=== PATIENT | male | born 1970 | race African-American/Black ===

== ENCOUNTER 2016-12-21 07:35 | Emergency (ER) | payer MEDICAID ==
[~2016-12-21] VITALS: Ht 177.8 cm; Wt 90.0 kg
[~2016-12-21 07:35] MED LIST: AMLO10TA4 PO; ASPI-1035 PO; INSULIN; METF500T4 PO
[2016-12-21] MEDS ORDERED: SODIUM CHLORIDE 0.9% 1,000 ML IV ONE (07:48)
[2016-12-21] MEDS ORDERED: ONDANSETRON HCL 4MG/2ML VIAL IV STA (07:48)
[2016-12-21 08:21] LABS: HEMATOCRIT. 34.1 % (42.0-52.0); HEMOGLOBIN. 11.4 g/dL (14.0-18.0); MEAN CORPUSCULAR HEMOGLOBIN 27.5 pg (28.0-32.0); MEAN CORPUSCULAR HGB CONC 33.5 g/dL (31.0-37.0); MEAN CORPUSCULAR VOLUME 82.2 fL (80.0-94.0); MEAN PLATELET VOLUME 8.1 fl (7.4-10.4); PLATELET 189 x1000/uL (130-400); RED BLOOD CELL COUNT 4.15 mill/uL (4.7-6.1); RED CELL DISTRIBUTION WIDTH 13.2 % (11.6-14.6); WHITE BLOOD COUNT 11.7 x1000/uL (4.5-11.0)
[2016-12-21 08:24] LABS: DIFFERENTIAL COMMENT 1
[2016-12-21 08:36] LABS: ALANINE AMINOTRANSFERASE 29 IU/L (13-61); ALBUMIN 3.7 g/dL (3.4-5.0); ANION GAP 12; CARBON DIOXIDE 29 mEq/L (21-32); CHLORIDE 106 mEq/L (98-107); INDEX HEMOLYSI 1 (1-3); INDEX ICTERIC 1 (1-4); INDEX LIPEMIC 1 (1-3); LIPASE 207 IU/L (73-393); UREA NITROGEN BLOOD 15 mg/dL (7-21); eGFR > 60 mL/min (>60)
[2016-12-21 08:59] LABS: PLATELET ESTIMATE NORMAL
[2016-12-21] MEDS ORDERED: ONDANSETRON HCL 4MG/2ML VIAL IV ONE (09:15)
[2016-12-21] MEDS ORDERED: MORPHINE SULFATE 4 MG/ML CPJ (NOT FOR IM USE) IV ONE (09:15)
[2016-12-21 09:35] LABS: CLARITY URINE CLEAR (CLEAR); COLOR URINE YELLOW (YELLOW); GLUCOSE URINE 2+ (NEGATIVE); KETONES URINE NEGATIVE (NEGATIVE); LEUKOCYTE ESTERASE URINE NEGATIVE (NEGATIVE); NITRITE URINE NEGATIVE (NEGATIVE); OCCULT BLOOD URINE 1+ (NEGATIVE); PROTEIN URINE 3+ (NEGATIVE); SPECIFIC GRAVITY URINE 1.019 (1.005-1.030); UROBILINOGEN URINE 0.2 E.U./dL (0.2-1.0)
[2016-12-21 09:45] LABS: *AMPHETAMINES SCREEN URINE NEGATIVE (NEGATIVE); *BARBITURATES SCREEN URINE NEGATIVE (NEGATIVE); *BENZODIAZEPINES SCREEN URINE NEGATIVE (NEGATIVE); *COCAINE SCREEN URINE NEGATIVE (NEGATIVE); CANNABINOID URINE SCREEN PRESUMTIVE POSITIVE (NEGATIVE); ECSTASY MDMA SCREEN URINE NEGATIVE (NEGATIVE); METHADONE URINE SCREEN NEGATIVE (NEGATIVE); OPIATES URINE SCREEN NEGATIVE (NEGATIVE); PHENCYCLIDINE URINE SCREEN NEGATIVE (NEGATIVE)
[2016-12-21 10:22] LABS: MUCUS URINE TRACE /lpf (NONE/TRACE); SQUAMOUS EPITHELIAL CELL URINE FEW /lpf (RARE/1+)
[2016-12-21 10:23] LABS: BACTERIA URINE TRACE; RBC URINE 15-25 /hpf (0-2); WBC URINE 0-2 /hpf (0-2)
[2016-12-21 10:45] VITALS: BP 183/89
[2016-12-21] MEDS ORDERED: HYDROCODONE/ACETAMINOPHEN 5/325MG TABLET PO ONE (10:45)
== END 2016-12-21 10:59 | disposition home or self-care (01) ==
LOC: ER 07:44
DX: R10.13 Epigastric pain (principal); R11.0 Nausea; I10 Essential (primary) hypertension; F12.10 Cannabis abuse, uncomplicated; E11.9 Type 2 diabetes mellitus without complications; Z79.4 Long term (current) use of insulin; Z79.82 Long term (current) use of aspirin
CPT/HCPCS: 36415; 80053; 80305; 81001; 83690; 85025; 96361; 96374; 96375; 96376; 99285; J2270; J2405; J7030; Z7610

== ENCOUNTER 2016-12-21 19:37 | Emergency (ER) | payer MEDICAID ==
[~2016-12-21] VITALS: Ht 170.2 cm; Wt 90.7 kg
[2016-12-21] MEDS ORDERED: SODIUM CHLORIDE 0.9% 1,000 ML IV ONE (19:51)
[2016-12-21] MEDS ORDERED: ONDANSETRON HCL 4MG/2ML VIAL IV STA (19:51)
[2016-12-21] MEDS ORDERED: KETOROLAC 30MG/ML VIAL IV STA (19:51)
[2016-12-21 20:09] LABS: HEMATOCRIT. 34.7 % (42.0-52.0); HEMOGLOBIN. 11.5 g/dL (14.0-18.0); MEAN CORPUSCULAR HEMOGLOBIN 27.2 pg (28.0-32.0); MEAN CORPUSCULAR HGB CONC 33.3 g/dL (31.0-37.0); MEAN CORPUSCULAR VOLUME 81.6 fL (80.0-94.0); PLATELET 184 x1000/uL (130-400); RED BLOOD CELL COUNT 4.25 mill/uL (4.7-6.1); RED CELL DISTRIBUTION WIDTH 13.1 % (11.6-14.6); WHITE BLOOD COUNT 17.4 x1000/uL (4.5-11.0)
[2016-12-21 20:10] LABS: DIFFERENTIAL COMMENT 1
[2016-12-21 20:12] LABS: CHLORIDE 103 mEq/L (98-107); INDEX HEMOLYSI 1 (1-3); INDEX ICTERIC 1 (1-4); INDEX LIPEMIC 1 (1-3)
[2016-12-21 20:14] LABS: PROTHROMBIN TIME 10.4 sec
[2016-12-21 20:20] LABS: ALANINE AMINOTRANSFERASE 28 IU/L (13-61); ALBUMIN 3.8 g/dL (3.4-5.0); ANION GAP 10; CALCIUM 8.8 mg/dL (8.5-10.1); CARBON DIOXIDE 30 mEq/L (21-32); ETHANOL BLOOD < 10 mg/dL; LIPASE 115 IU/L (73-393); UREA NITROGEN BLOOD 10 mg/dL (7-21); eGFR > 60 mL/min (>60)
[2016-12-21 20:22] LABS: PLATELET ESTIMATE NORMAL
[2016-12-21 23:00] VITALS: BP 136/97
== END 2016-12-21 23:00 | disposition home or self-care (01) ==
LOC: ER 19:37
DX: E11.65 Type 2 diabetes mellitus with hyperglycemia (principal); R10.33 Periumbilical pain; I10 Essential (primary) hypertension; F12.10 Cannabis abuse, uncomplicated; E78.00 Pure hypercholesterolemia, unspecified; Z79.82 Long term (current) use of aspirin; Z79.4 Long term (current) use of insulin
CPT/HCPCS: 36415; 74176; 80053; 83690; 85025; 85610; 96361; 96374; 96375; 99285; G0482; J1885; J2405; J7030; Z7610

== ENCOUNTER 2017-08-07 10:41 | Emergency (ER) | payer MEDICAID ==
[~2017-08-07] VITALS: Ht 170.2 cm; Wt 80.0 kg
[~2017-08-07 10:41] MED LIST changes: -ASPI-1035 PO; +ASPI-1159 PO
[2017-08-07] MEDS ORDERED: ACETAMINOPHEN WITH CODEINE 300/30MG TABLET PO ONE (13:15)
[2017-08-07] MEDS ORDERED: CEPHALEXIN 500MG CAPSULE PO ONE (13:15)
[2017-08-07] MEDS ORDERED: SULFAMETHOXAZOLE/TRIMETHOPRIM 800/160MG TABLET PO ONE (13:15)
[2017-08-07 13:45] VITALS: BP 165/84
== END 2017-08-07 13:48 | disposition home or self-care (01) ==
LOC: ER 11:20
DX: I80.8 Phlebitis and thrombophlebitis of other sites (principal); I10 Essential (primary) hypertension; E78.00 Pure hypercholesterolemia, unspecified; E11.9 Type 2 diabetes mellitus without complications; F12.10 Cannabis abuse, uncomplicated; Z79.82 Long term (current) use of aspirin; Z79.4 Long term (current) use of insulin
CPT/HCPCS: 82962; 99284

== ENCOUNTER 2018-08-03 11:00 | Inpatient (IN) | payer MEDICAID ==
[~2018-08-03] VITALS: Ht 170.2 cm; Wt 91.2 kg
[~2018-08-03 11:00] MED LIST changes: -INSULIN; +LIP40 PO; +LOSA25TA3 PO; +METF-414 PO; -METF500T4 PO; +METO10TA3 PO
[2018-08-03] MEDS ORDERED: SODIUM CHLORIDE 0.9% 1,000 ML IV ONE (11:28)
[2018-08-03] MEDS ORDERED: MORPHINE SULFATE 4 MG/ML CPJ (NOT FOR IM USE) IV STA (11:28)
[2018-08-03] MEDS ORDERED: ONDANSETRON HCL 4MG/2ML INJ IV STA (11:28)
[2018-08-03] MEDS ORDERED: FAMOTIDINE 20MG/2ML VIAL IV STA (11:28)
[2018-08-03 11:50] LABS: CHLORIDE 104 mEq/L (98-107)
[2018-08-03 11:53] LABS: PROTHROMBIN TIME 9.7 sec (9.1-11.1)
[2018-08-03 12:00] LABS: HEMATOCRIT. 32.9 % (42.0-52.0); MEAN CORPUSCULAR HEMOGLOBIN 27.7 pg (28.0-32.0); MEAN CORPUSCULAR VOLUME 82.9 fL (80.0-94.0); MEAN PLATELET VOLUME 8.4 fl (7.4-10.4); PLATELET 181 x1000/uL (130-400); RED BLOOD CELL COUNT 3.97 mill/uL (4.7-6.1); RED CELL DISTRIBUTION WIDTH 13.1 % (11.6-14.6)
[2018-08-03 12:21] LABS: PLATELET ESTIMATE NORMAL
[2018-08-03 14:16] LABS: CLARITY URINE CLEAR (CLEAR); COLOR URINE YELLOW (YELLOW); KETONES URINE NEGATIVE (NEGATIVE); LEUKOCYTE ESTERASE URINE NEGATIVE (NEGATIVE); NITRITE URINE NEGATIVE (NEGATIVE); OCCULT BLOOD URINE 2+ (NEGATIVE); PROTEIN URINE 4+ (NEGATIVE); SPECIFIC GRAVITY URINE 1.024 (1.005-1.030); UROBILINOGEN URINE 0.2 E.U./dL (0.2-1.0)
[2018-08-03] MEDS ORDERED: DIPHENHYDRAMINE 50MG/ML VIAL IV PRN (16:45)
[2018-08-03] MEDS ORDERED: DEXTROSE 50% WATER 50ML SYRINGE IV PRN (16:45)
[2018-08-03 17:00] VITALS: BP 211/107
[2018-08-03] MEDS: SODIUM CHLORIDE 0.9% 1,000 ML IV SCH (17:15)
[2018-08-03] MEDS: BLOOD SUGAR DIAGNOSTIC STRIP TEST SCH ×2 (17:40→20:17)
[2018-08-03] MEDS: ONDANSETRON HCL 4MG/2ML INJ IV PRN (17:48)
[2018-08-03] MEDS: HYDRALAZINE 20MG/ML VIAL IV PRN (17:49)
[2018-08-03] MEDS: MORPHINE SULFATE 4 MG/ML CPJ (NOT FOR IM USE) IV PRN (17:50)
[2018-08-03] MEDS: INSULIN LISPRO 100 UNITS/ML SUBCUT SCH ×2 (18:10→20:17)
[2018-08-03 20:00] VITALS: BP 139/77
[2018-08-03] MEDS: FAMOTIDINE 20MG/2ML VIAL IV SCH (20:02)
[2018-08-04] VITALS (9 sets, daily range): BP systolic 157–220; BP diastolic 65–110
[2018-08-04] MEDS: MORPHINE SULFATE 4 MG/ML CPJ (NOT FOR IM USE) IV PRN ×4 (00:10→22:14)
[2018-08-04] MEDS: HYDRALAZINE 20MG/ML VIAL IV PRN ×4 (00:10→18:36)
[2018-08-04] MEDS: ONDANSETRON HCL 4MG/2ML INJ IV PRN ×3 (00:10→12:56)
[2018-08-04] MEDS: SODIUM CHLORIDE 0.9% 1,000 ML IV SCH ×2 (03:15→12:57)
[2018-08-04] MEDS: BLOOD SUGAR DIAGNOSTIC STRIP TEST SCH ×4 (05:48→21:00)
[2018-08-04 07:37] LABS: BASOPHILS % 0.3 % (0.0-2.0); EOSINOPHILS % 0.2 % (0.0-5.0); HEMATOCRIT. 32.7 % (42.0-52.0); HEMOGLOBIN. 10.7 g/dL (14.0-18.0); LYMPHOCYTES % 10.5 % (20.0-50.0); MEAN CORPUSCULAR HEMOGLOBIN 27.5 pg (28.0-32.0); MEAN CORPUSCULAR VOLUME 83.9 fL (80.0-94.0); MEAN PLATELET VOLUME 8.6 fl (7.4-10.4); MONOCYTES % 9.9 % (2.0-8.0); NEUTROPHILS % 79.1 % (40.0-76.0); PLATELET 198 x1000/uL (130-400); RED CELL DISTRIBUTION WIDTH 13.2 % (11.6-14.6)
[2018-08-04] MEDS: INSULIN LISPRO 100 UNITS/ML SUBCUT SCH ×4 (08:10→21:00)
[2018-08-04] MEDS: FAMOTIDINE 20MG/2ML VIAL IV SCH (08:11)
[2018-08-04 08:19] LABS: CHLORIDE 105 mEq/L (98-107)
[2018-08-04 08:24] LABS: PHOSPHORUS 2.6 mg/dL (2.5-4.9)
[2018-08-04] MEDS ORDERED: POTASSIUM CHLORIDE INJ 40 MEQ in DEXT 5% WATER 250 ML IV SCH (12:00)
[2018-08-04] MEDS: PANTOPRAZOLE SODIUM 40 MG/VIAL IV SCH (17:37)
[2018-08-05] VITALS (7 sets, daily range): BP systolic 145–179; BP diastolic 82–95
[2018-08-05] MEDS: SODIUM CHLORIDE 0.9% 1,000 ML IV SCH ×2 (01:01→13:27)
[2018-08-05] MEDS: HYDRALAZINE 20MG/ML VIAL IV PRN ×2 (01:02→09:16)
[2018-08-05] MEDS: PANTOPRAZOLE SODIUM 40 MG/VIAL IV SCH ×2 (04:44→15:15)
[2018-08-05 06:02] LABS: CHLORIDE 109 mEq/L (98-107)
[2018-08-05 06:03] LABS: BASOPHILS % 0.8 % (0.0-2.0); EOSINOPHILS % 1.3 % (0.0-5.0); HEMATOCRIT. 31.1 % (42.0-52.0); HEMOGLOBIN. 10.4 g/dL (14.0-18.0); LYMPHOCYTES % 16.3 % (20.0-50.0); MEAN CORPUSCULAR HEMOGLOBIN 28.3 pg (28.0-32.0); MEAN CORPUSCULAR VOLUME 84.4 fL (80.0-94.0); MEAN PLATELET VOLUME 8.3 fl (7.4-10.4); MONOCYTES % 10.1 % (2.0-8.0); NEUTROPHILS % 71.5 % (40.0-76.0); PLATELET 184 x1000/uL (130-400); RED BLOOD CELL COUNT 3.69 mill/uL (4.7-6.1); RED CELL DISTRIBUTION WIDTH 13.4 % (11.6-14.6)
[2018-08-05 06:15] LABS: PHOSPHORUS 2.2 mg/dL (2.5-4.9)
[2018-08-05] MEDS: BLOOD SUGAR DIAGNOSTIC STRIP TEST SCH ×4 (07:40→21:00)
[2018-08-05] MEDS: INSULIN LISPRO 100 UNITS/ML SUBCUT SCH ×4 (08:10→21:00)
[2018-08-05] MEDS: MORPHINE SULFATE 4 MG/ML CPJ (NOT FOR IM USE) IV PRN (09:16)
[2018-08-05] MEDS ORDERED: POTASSIUM PHOS,M-BASIC-D-BASIC 20 MMOL in DEXT 5% WATER 243.3333 ML IV SCH (11:00)
[2018-08-05] MEDS ORDERED: KETOROLAC 30MG/ML VIAL IV PRN (23:45)
[2018-08-06] VITALS (7 sets, daily range): BP systolic 156–171; BP diastolic 55–90
[2018-08-06] MEDS: SODIUM CHLORIDE 0.9% 1,000 ML IV SCH (00:27)
[2018-08-06] MEDS: PANTOPRAZOLE SODIUM 40 MG/VIAL IV SCH ×2 (03:20→15:15)
[2018-08-06] MEDS: BLOOD SUGAR DIAGNOSTIC STRIP TEST SCH ×2 (06:37→11:57)
[2018-08-06] MEDS: INSULIN LISPRO 100 UNITS/ML SUBCUT SCH ×2 (08:10→12:43)
[2018-08-06] MEDS: HYDRALAZINE 20MG/ML VIAL IV PRN ×2 (08:47→12:42)
== END 2018-08-06 15:52 | disposition home or self-care (01) | DRG 282 ==
LOC: ER 11:22 → 7WST 12:54 → ENRESERV 14:49
PROVIDERS: ADMIT Internal Medicine; ATTEND Internal Medicine
DX: K85.90 Acute pancreatitis without necrosis or infection, unspecified (principal); K31.84 Gastroparesis; E11.43 Type 2 diabetes mellitus with diabetic autonomic (poly)neuropathy; E11.9 Type 2 diabetes mellitus without complications; F12.90 Cannabis use, unspecified, uncomplicated; E78.00 Pure hypercholesterolemia, unspecified; I10 Essential (primary) hypertension; K29.70 Gastritis, unspecified, without bleeding; Z83.3 Family history of diabetes mellitus
CPT/HCPCS: 36415; 71045; 80048; 82962; 83605; 83735; 84100; 93970; 96361; 96374; 96375; 99285; C9113; J0360; J1815; J2270; J2405; J3480; J3490; J7030; J7060

== ENCOUNTER 2018-12-22 16:21 | Emergency (ER) | payer MEDICAID ==
[~2018-12-22] VITALS: Ht 182.9 cm; Wt 90.0 kg
[2018-12-22] MEDS ORDERED: ONDANSETRON HCL 4MG/2ML INJ IV STA (16:43)
[2018-12-22] MEDS ORDERED: SODIUM CHLORIDE 0.9% 1,000 ML IV ONE (16:43)
[2018-12-22] MEDS ORDERED: MORPHINE SULFATE 4 MG/ML CPJ (NOT FOR IM USE) IV STA (16:43)
[2018-12-22] MEDS ORDERED: FAMOTIDINE 20MG/2ML VIAL IV STA (16:43)
[2018-12-22 18:05] LABS: BASOPHILS % 0.5 % (0.0-2.0); HEMATOCRIT. 35.3 % (42.0-52.0); HEMOGLOBIN. 11.7 g/dL (14.0-18.0); LYMPHOCYTES % 7.9 % (20.0-50.0); MEAN CORPUSCULAR HEMOGLOBIN 27.8 pg (28.0-32.0); MEAN CORPUSCULAR VOLUME 83.5 fL (80.0-94.0); MEAN PLATELET VOLUME 8.5 fl (7.4-10.4); MONOCYTES % 8.1 % (2.0-8.0); NEUTROPHILS % 81.5 % (40.0-76.0); PLATELET 169 x1000/uL (130-400); RED BLOOD CELL COUNT 4.22 mill/uL (4.7-6.1); RED CELL DISTRIBUTION WIDTH 13.5 % (11.6-14.6)
[2018-12-22 18:10] LABS: CHLORIDE 109 mEq/L (98-107)
[2018-12-22 18:12] LABS: PROTHROMBIN TIME 10.2 sec (9.6-11.0)
[2018-12-22] MEDS ORDERED: IBUPROFEN 800MG TABLET PO ONE (19:30)
[2018-12-22] MEDS ORDERED: ACETAMINOPHEN 500MG TABLET PO ONE (19:30)
[2018-12-22 19:47] LABS: CLARITY URINE CLEAR (CLEAR); COLOR URINE YELLOW (YELLOW); KETONES URINE NEGATIVE (NEGATIVE); LEUKOCYTE ESTERASE URINE NEGATIVE (NEGATIVE); NITRITE URINE NEGATIVE (NEGATIVE); OCCULT BLOOD URINE 2+ (NEGATIVE); PH URINE 6.5 (4.5-8.0); PROTEIN URINE 4+ (NEGATIVE); SPECIFIC GRAVITY URINE 1.021 (1.005-1.030); UROBILINOGEN URINE 0.2 E.U./dL (0.2-1.0)
[2018-12-22 20:29] VITALS: BP 165/90
== END 2018-12-22 20:47 | disposition home or self-care (01) ==
LOC: ER 16:21
DX: K29.70 Gastritis, unspecified, without bleeding (principal); Z87.19 Personal history of other diseases of the digestive system; Z79.82 Long term (current) use of aspirin
CPT/HCPCS: 36415; 74176; 80053; 81003; 83690; 85025; 85610; 96361; 96374; 96375; 99284; J2270; J2405; J3490; J7030

== ENCOUNTER 2019-01-25 13:30 | Emergency (ER) | payer MEDICAID ==
[~2019-01-25] VITALS: Ht 170.2 cm; Wt 88.0 kg
[~2019-01-25 13:30] MED LIST changes: -ASPI-1159 PO; +ASPI-1393 PO
[2019-01-25] MEDS ORDERED: MORPHINE SULFATE 4 MG/ML CPJ (NOT FOR IM USE) IV STA (13:44)
[2019-01-25] MEDS ORDERED: KETOROLAC 30MG/ML VIAL IV STA (13:44)
[2019-01-25] MEDS ORDERED: SODIUM CHLORIDE 0.9% 1,000 ML IV ONE (13:44)
[2019-01-25] MEDS ORDERED: MORPHINE SULFATE 4 MG/ML CPJ (NOT FOR IM USE) IV ONE (14:00)
[2019-01-25 14:35] LABS: BASOPHILS % 0.4 % (0.0-2.0); CHLORIDE 107 mEq/L (98-107); EOSINOPHILS % 0.4 % (0.0-5.0); HEMATOCRIT. 33.2 % (42.0-52.0); HEMOGLOBIN. 11.3 g/dL (14.0-18.0); LYMPHOCYTES % 9.3 % (20.0-50.0); MEAN CORPUSCULAR HEMOGLOBIN 28.2 pg (28.0-32.0); MEAN CORPUSCULAR VOLUME 82.7 fL (80.0-94.0); MEAN PLATELET VOLUME 8.2 fl (7.4-10.4); MONOCYTES % 6.6 % (2.0-8.0); NEUTROPHILS % 83.3 % (40.0-76.0); PLATELET 168 x1000/uL (130-400); RED BLOOD CELL COUNT 4.01 mill/uL (4.7-6.1); RED CELL DISTRIBUTION WIDTH 13.6 % (11.6-14.6)
[2019-01-25] MEDS ORDERED: CLONIDINE 0.2MG TABLET PO ONE (16:15)
[2019-01-25] MEDS ORDERED: CLONIDINE 0.2MG TABLET ONE (16:19)
[2019-01-25 17:55] VITALS: BP 159/84
== END 2019-01-25 18:18 | disposition home or self-care (01) ==
LOC: ER 13:30
DX: K52.9 Noninfective gastroenteritis and colitis, unspecified (principal); I10 Essential (primary) hypertension; F12.10 Cannabis abuse, uncomplicated; Z87.19 Personal history of other diseases of the digestive system; Z79.899 Other long term (current) drug therapy; Z79.82 Long term (current) use of aspirin
CPT/HCPCS: 36415; 74021; 80053; 83690; 84484; 85025; 85610; 93005; 96361; 96374; 96375; 99284; J1885; J2270; J7030; Z7610

== ENCOUNTER 2019-07-31 07:40 | Inpatient (IN) | payer MEDICAID ==
[~2019-07-31] VITALS: Ht 172.7 cm; Wt 99.8 kg
[~2019-07-31 07:40] MED LIST changes: -ASPI-1393 PO; +ASPI-1497 PO
[2019-07-31] MEDS ORDERED: KETOROLAC 30MG/ML VIAL IV STA (08:00)
[2019-07-31] MEDS ORDERED: SODIUM CHLORIDE 0.9% 1,000 ML IV ONE (08:00)
[2019-07-31] MEDS ORDERED: ONDANSETRON HCL 4MG/2ML INJ IV STA ×2 (08:00→09:44)
[2019-07-31 08:19] LABS: BASOPHILS % 0.9 % (0.0-2.0); EOSINOPHILS % 3.8 % (0.0-5.0); HEMOGLOBIN. 10.5 g/dL (14.0-18.0); LYMPHOCYTES % 12.3 % (20.0-50.0); MEAN CORPUSCULAR HEMOGLOBIN 27.9 pg (28.0-32.0); MEAN CORPUSCULAR VOLUME 84.8 fL (80.0-94.0); MEAN PLATELET VOLUME 8.2 fl (7.4-10.4); MONOCYTES % 7.1 % (2.0-8.0); NEUTROPHILS % 75.9 % (40.0-76.0); PLATELET 182 x1000/uL (130-400); RED BLOOD CELL COUNT 3.78 mill/uL (4.7-6.1); RED CELL DISTRIBUTION WIDTH 13.7 % (11.6-14.6)
[2019-07-31 08:23] LABS: CHLORIDE 112 mEq/L (98-107)
[2019-07-31 08:27] LABS: ETHANOL BLOOD < 10 mg/dL
[2019-07-31] MEDS ORDERED: MORPHINE SULFATE 4 MG/ML CPJ (NOT FOR IM USE) IV STA (09:44)
[2019-07-31 09:58] LABS: CLARITY URINE CLEAR (CLEAR); COLOR URINE YELLOW (YELLOW); KETONES URINE NEGATIVE (NEGATIVE); LEUKOCYTE ESTERASE URINE NEGATIVE (NEGATIVE); NITRITE URINE NEGATIVE (NEGATIVE); OCCULT BLOOD URINE 2+ (NEGATIVE); PH URINE 6.5 (4.5-8.0); PROTEIN URINE 3+ (NEGATIVE); SPECIFIC GRAVITY URINE 1.017 (1.005-1.030); UROBILINOGEN URINE 0.2 E.U./dL (0.2-1.0)
[2019-07-31 10:19] LABS: *BARBITURATES SCREEN URINE NEGATIVE (NEGATIVE)
[2019-07-31 10:20] LABS: *BENZODIAZEPINES SCREEN URINE NEGATIVE (NEGATIVE); *COCAINE SCREEN URINE NEGATIVE (NEGATIVE); CANNABINOID URINE SCREEN PRESUMTIVE POSITIVE (NEGATIVE); METHADONE URINE SCREEN NEGATIVE (NEGATIVE); OPIATES URINE SCREEN NEGATIVE (NEGATIVE); PHENCYCLIDINE URINE SCREEN NEGATIVE (NEGATIVE)
[2019-07-31 10:21] LABS: *AMPHETAMINES SCREEN URINE NEGATIVE (NEGATIVE)
[2019-07-31] MEDS ORDERED: SODIUM CHLORIDE 0.9% 1,000 ML IV SCH (13:56)
[2019-07-31] MEDS ORDERED: ZOLPIDEM TARTRATE 5MG TABLET PO PRN (14:00)
[2019-07-31] MEDS ORDERED: DOCUSATE SODIUM 100MG CAPSULE PO PRN (14:00)
[2019-07-31] MEDS ORDERED: GUAIFENESIN 200MG/10ML SUGAR FREE UDC PO PRN (14:00)
[2019-07-31] MEDS ORDERED: IPRATROPIUM/ALBUTEROL 0.5-3(2.5)MG/3ML NEB NEB PRN (14:00)
[2019-07-31] MEDS ORDERED: CLONIDINE 0.1MG TABLET PO SCH (14:00)
[2019-07-31] MEDS ORDERED: LORAZEPAM 0.5MG TABLET PO PRN (14:00)
[2019-07-31] MEDS ORDERED: DEXTROSE 50% WATER 50ML SYRINGE IV PRN (14:00)
[2019-07-31] MEDS ORDERED: ACETAMINOPHEN 325MG TABLET PO SCH (14:00)
[2019-07-31] MEDS ORDERED: NITROGLYCERIN 0.4MG TABLET SL SL PRN (14:00)
[2019-07-31] MEDS ORDERED: ENOXAPARIN 40MG/0.4ML SYR SUBCUT SCH (14:00)
[2019-07-31] MEDS ORDERED: CLONIDINE 0.1MG TABLET PO PRN (14:00)
[2019-07-31] MEDS ORDERED: MAGNESIUM/ALUMINUM HYDROXIDE/SIMETHICONE 30ML UDC PO PRN (14:00)
[2019-07-31] MEDS: AMLODIPINE 10MG TABLET PO SCH (15:00)
[2019-07-31] MEDS ORDERED: HYDRALAZINE HCL 50MG TABLET PO NR (15:30)
[2019-07-31] MEDS: ENOXAPARIN 30MG/0.3ML SYR SUBCUT SCH (16:01)
[2019-07-31] MEDS: KETOROLAC 15MG/ML VIAL IV PRN ×2 (16:35→22:45)
[2019-07-31] MEDS: ONDANSETRON HCL 4MG/2ML INJ IV PRN ×2 (16:39→20:54)
[2019-07-31] MEDS: BLOOD SUGAR DIAGNOSTIC STRIP TEST SCH (18:15)
[2019-07-31] MEDS ORDERED: METOCLOPRAMIDE 10MG/10 ML UDC PO NR (18:30)
[2019-07-31] MEDS: INSULIN LISPRO 100 UNITS/ML SUBCUT SCH ×2 (18:53→21:00)
[2019-07-31] MEDS ORDERED: MINOXIDIL 2.5MG TABLET PO NR (19:15)
[2019-07-31] MEDS: ACETAMINOPHEN 325MG TABLET PO PRN (20:53)
[2019-07-31 22:13] VITALS: BP 132/77
[2019-07-31 22:30] VITALS: BP 132/77
[2019-07-31] MEDS: HYDRALAZINE HCL 50MG TABLET PO SCH (23:05)
[2019-08-01] VITALS: BP 143/62
[2019-08-01] MEDS: ACETAMINOPHEN 325MG TABLET PO PRN (02:48)
[2019-08-01] MEDS: ONDANSETRON HCL 4MG/2ML INJ IV PRN (02:48)
[2019-08-01 04:00] VITALS: BP 108/50
[2019-08-01] MEDS: HYDRALAZINE HCL 50MG TABLET PO SCH ×2 (05:59→14:20)
[2019-08-01] MEDS: KETOROLAC 15MG/ML VIAL IV PRN (06:17)
[2019-08-01] MEDS: BLOOD SUGAR DIAGNOSTIC STRIP TEST SCH ×2 (06:33→12:53)
[2019-08-01] MEDS: METOCLOPRAMIDE 10MG/10 ML UDC PO SCH ×2 (06:34→12:53)
[2019-08-01] MEDS: INSULIN LISPRO 100 UNITS/ML SUBCUT SCH ×2 (07:50→12:59)
[2019-08-01 08:00] VITALS: BP 157/85
[2019-08-01 08:29] LABS: BASOPHILS % 0.2 % (0.0-2.0); EOSINOPHILS % 0.2 % (0.0-5.0); HEMATOCRIT. 30.4 % (42.0-52.0); LYMPHOCYTES % 10.3 % (20.0-50.0); MEAN CORPUSCULAR HEMOGLOBIN 27.6 pg (28.0-32.0); MEAN PLATELET VOLUME 8.7 fl (7.4-10.4); MONOCYTES % 7.2 % (2.0-8.0); NEUTROPHILS % 82.1 % (40.0-76.0); PLATELET 202 x1000/uL (130-400); RED BLOOD CELL COUNT 3.62 mill/uL (4.7-6.1); RED CELL DISTRIBUTION WIDTH 13.7 % (11.6-14.6)
[2019-08-01 08:33] LABS: CHLORIDE 109 mEq/L (98-107)
[2019-08-01 08:36] LABS: AMYLASE 181 IU/L (25-115)
[2019-08-01] MEDS ORDERED: FAMOTIDINE 20MG TABLET PO SCH (09:00)
[2019-08-01] MEDS ORDERED: MINOXIDIL 2.5MG TABLET PO SCH (09:00)
[2019-08-01] MEDS ORDERED: METOPROLOL TARTRATE 25MG TABLET PO SCH (09:00)
[2019-08-01] MEDS ORDERED: SODIUM CHLORIDE 0.9% 1,000 ML IV SCH (09:18)
[2019-08-01] MEDS: ENOXAPARIN 30MG/0.3ML SYR SUBCUT SCH (09:47)
[2019-08-01] MEDS: AMLODIPINE 10MG TABLET PO SCH (09:48)
[2019-08-01 12:00] VITALS: BP 120/66
[2019-08-01 14:41] VITALS: BP 120/66
[2019-08-01 16:01] VITALS: BP 108/53
[2019-08-02] MEDS ORDERED: FAMOTIDINE 40MG TABLET PO SCH (09:00)
== END 2019-08-01 16:29 | disposition home or self-care (01) | DRG 48 ==
LOC: ER 07:40 → 6EST 12:40 → ENRESERV 18:27
PROVIDERS: ADMIT Internal Medicine; ATTEND Internal Medicine
DX: E11.43 Type 2 diabetes mellitus with diabetic autonomic (poly)neuropathy (principal); E44.0 Moderate protein-calorie malnutrition; E11.65 Type 2 diabetes mellitus with hyperglycemia; E83.51 Hypocalcemia; N19 Unspecified kidney failure; F12.10 Cannabis abuse, uncomplicated; I10 Essential (primary) hypertension; K31.84 Gastroparesis; Z68.33 Body mass index [BMI] 33.0-33.9, adult; Z91.19 Patient's noncompliance with other medical treatment and regimen; Z79.899 Other long term (current) drug therapy; Z79.82 Long term (current) use of aspirin; Z79.84 Long term (current) use of oral hypoglycemic drugs; Z71.51 Drug abuse counseling and surveillance of drug abuser
CPT/HCPCS: 36415; 74176; 80053; 80305; 80320; 81003; 82150; 82962; 83036; 85025; 93005; 93970; 99285; J1650; J1815; J1885; J2270; J2405; J7030; J8597; G0480

== ENCOUNTER 2019-11-27 07:43 | Emergency (ER) | payer MEDICAID ==
[~2019-11-27] VITALS: Ht 170.2 cm; Wt 90.0 kg
[2019-11-27] MEDS ORDERED: FAMOTIDINE 20MG/2ML VIAL IV STA (07:56)
[2019-11-27] MEDS ORDERED: ONDANSETRON HCL 4MG/2ML INJ IV STA (07:56)
[2019-11-27] MEDS ORDERED: SODIUM CHLORIDE 0.9% 1,000 ML IV ONE (07:56)
[2019-11-27] MEDS ORDERED: MORPHINE SULFATE 4 MG/ML CPJ (NOT FOR IM USE) IV STA (07:56)
[2019-11-27] MEDS ORDERED: LORAZEPAM 2MG/ML CPJ IV ONE ×2 (08:00→09:15)
[2019-11-27 08:38] LABS: BASOPHILS % 0.8 % (0.0-2.0); EOSINOPHILS % 2.4 % (0.0-5.0); HEMATOCRIT. 33.4 % (42.0-52.0); HEMOGLOBIN. 11.1 g/dL (14.0-18.0); LYMPHOCYTES % 10.1 % (20.0-50.0); MEAN CORPUSCULAR HEMOGLOBIN 27.6 pg (28.0-32.0); MEAN CORPUSCULAR VOLUME 83.3 fL (80.0-94.0); MEAN PLATELET VOLUME 7.7 fl (7.4-10.4); MONOCYTES % 4.4 % (2.0-8.0); NEUTROPHILS % 82.3 % (40.0-76.0); PLATELET 244 x1000/uL (130-400); RED BLOOD CELL COUNT 4.01 mill/uL (4.7-6.1); RED CELL DISTRIBUTION WIDTH 13.3 % (11.6-14.6)
[2019-11-27 08:43] LABS: CHLORIDE 108 mEq/L (98-107)
[2019-11-27 08:45] LABS: INR 0.9; PROTHROMBIN TIME 9.8 sec (9.6-11.0)
[2019-11-27 08:47] LABS: ETHANOL BLOOD < 10 mg/dL
[2019-11-27 09:04] LABS: CLARITY URINE CLEAR (CLEAR); COLOR URINE YELLOW (YELLOW); KETONES URINE NEGATIVE (NEGATIVE); LEUKOCYTE ESTERASE URINE NEGATIVE (NEGATIVE); NITRITE URINE NEGATIVE (NEGATIVE); OCCULT BLOOD URINE 1+ (NEGATIVE); PROTEIN URINE 3+ (NEGATIVE); SPECIFIC GRAVITY URINE 1.016 (1.005-1.030); UROBILINOGEN URINE 0.2 E.U./dL (0.2-1.0)
[2019-11-27] MEDS ORDERED: DICYCLOMINE HCL 10MG/ML 2ML AMP IM ONE (09:15)
[2019-11-27] MEDS ORDERED: LABETALOL 5MG/ML SYR 20 MG/4 ML SYRINGE IV ONE (09:15)
[2019-11-27 09:21] LABS: METHADONE URINE SCREEN NEGATIVE (NEGATIVE)
[2019-11-27 09:22] LABS: *AMPHETAMINES SCREEN URINE NEGATIVE (NEGATIVE); *BARBITURATES SCREEN URINE NEGATIVE (NEGATIVE); *BENZODIAZEPINES SCREEN URINE NEGATIVE (NEGATIVE); *COCAINE SCREEN URINE NEGATIVE (NEGATIVE); CANNABINOID URINE SCREEN PRESUMTIVE POSITIVE (NEGATIVE); OPIATES URINE SCREEN NEGATIVE (NEGATIVE); PHENCYCLIDINE URINE SCREEN NEGATIVE (NEGATIVE)
[2019-11-27 10:00] VITALS: BP 179/96
[2019-11-27] MEDS ORDERED: ONDANSETRON 4MG ODT ONE (10:36)
[2019-11-27] MEDS ORDERED: ONDANSETRON 4MG ODT PO ONE (10:45)
== END 2019-11-27 10:45 | disposition home or self-care (01) ==
LOC: ER 08:01
DX: R10.9 Unspecified abdominal pain (principal); R11.2 Nausea with vomiting, unspecified; E11.9 Type 2 diabetes mellitus without complications; I10 Essential (primary) hypertension; F12.10 Cannabis abuse, uncomplicated; Z91.14 Patient's other noncompliance with medication regimen; Z79.899 Other long term (current) drug therapy; Z79.82 Long term (current) use of aspirin
CPT/HCPCS: 36415; 71045; 80053; 80305; 80320; 81003; 83690; 84484; 85025; 85610; 93005; 96361; 96372; 96374; 96375; 99285; J0500; J2060; J2270; J2405; J3490; J7030; Q0162; G0480

== ENCOUNTER 2020-02-02 08:59 | Inpatient (IN) | payer MEDICAID ==
[~2020-02-02] VITALS: Ht 170.2 cm; Wt 90.7 kg
[2020-02-02] MEDS ORDERED: SODIUM CHLORIDE 0.9% 1,000 ML IV ONE (09:15)
[2020-02-02] MEDS ORDERED: FAMOTIDINE 20MG/2ML VIAL IV STA (09:15)
[2020-02-02] MEDS ORDERED: ONDANSETRON HCL 4MG/2ML INJ IV STA (09:15)
[2020-02-02 09:48] LABS: BASOPHILS % 0.8 % (0.0-2.0); EOSINOPHILS % 2.8 % (0.0-5.0); HEMATOCRIT. 36.5 % (42.0-52.0); HEMOGLOBIN. 12.1 g/dL (14.0-18.0); LYMPHOCYTES % 13.5 % (20.0-50.0); MEAN CORPUSCULAR HEMOGLOBIN 27.9 pg (28.0-32.0); MEAN CORPUSCULAR VOLUME 83.7 fL (80.0-94.0); MEAN PLATELET VOLUME 8.2 fl (7.4-10.4); MONOCYTES % 5.2 % (2.0-8.0); NEUTROPHILS % 77.7 % (40.0-76.0); PLATELET 209 x1000/uL (130-400); RED BLOOD CELL COUNT 4.36 mill/uL (4.7-6.1); RED CELL DISTRIBUTION WIDTH 13.9 % (11.6-14.6)
[2020-02-02 09:55] LABS: CHLORIDE 112 mEq/L (98-107)
[2020-02-02 09:58] LABS: ETHANOL BLOOD < 10 mg/dL; INR 0.9; PROTHROMBIN TIME 9.8 sec (9.6-11.0)
[2020-02-02] MEDS ORDERED: HALOPERIDOL LACTATE 5MG/ML VIAL IM ONE ×2 (10:45→12:00)
[2020-02-02 11:32] LABS: CLARITY URINE CLEAR (CLEAR); COLOR URINE YELLOW (YELLOW); KETONES URINE NEGATIVE (NEGATIVE); LEUKOCYTE ESTERASE URINE NEGATIVE (NEGATIVE); NITRITE URINE NEGATIVE (NEGATIVE); OCCULT BLOOD URINE 1+ (NEGATIVE); PH URINE 6.5 (4.5-8.0); PROTEIN URINE 3+ (NEGATIVE); SPECIFIC GRAVITY URINE 1.018 (1.005-1.030); UROBILINOGEN URINE 0.2 E.U./dL (0.2-1.0)
[2020-02-02] MEDS ORDERED: CAPSAICIN 0.075% CREAM 60GM TOP STA (11:40)
[2020-02-02 11:57] LABS: *AMPHETAMINES SCREEN URINE NEGATIVE (NEGATIVE); *BARBITURATES SCREEN URINE NEGATIVE (NEGATIVE); *BENZODIAZEPINES SCREEN URINE NEGATIVE (NEGATIVE); *COCAINE SCREEN URINE NEGATIVE (NEGATIVE); METHADONE URINE SCREEN NEGATIVE (NEGATIVE)
[2020-02-02 11:58] LABS: CANNABINOID URINE SCREEN PRESUMTIVE POSITIVE (NEGATIVE); OPIATES URINE SCREEN NEGATIVE (NEGATIVE); PHENCYCLIDINE URINE SCREEN NEGATIVE (NEGATIVE)
[2020-02-02] MEDS ORDERED: MORPHINE SULFATE 4 MG/ML CPJ (NOT FOR IM USE) IV ONE (16:15)
[2020-02-02] MEDS ORDERED: METOCLOPRAMIDE HCL 10MG/2ML VIAL IV ONE (16:15)
[2020-02-02] MEDS ORDERED: HYDRALAZINE 20MG/ML VIAL IV PRN (19:30)
[2020-02-02] MEDS ORDERED: DEXTROSE 50% WATER 50ML SYRINGE IV PRN (19:30)
[2020-02-02] MEDS ORDERED: ACETAMINOPHEN 325MG TABLET PO PRN ×2 (19:30)
[2020-02-02] MEDS ORDERED: DIPHENHYDRAMINE 50MG/ML VIAL IV PRN (19:30)
[2020-02-02] MEDS ORDERED: ONDANSETRON HCL 4MG/2ML INJ IV PRN (19:30)
[2020-02-02] MEDS: SODIUM CHLORIDE 0.9% 1,000 ML IV SCH (20:11)
[2020-02-02] MEDS: PANTOPRAZOLE SODIUM 40 MG/VIAL IV SCH (21:18)
[2020-02-02] MEDS: MORPHINE SULFATE 4 MG/ML CPJ (NOT FOR IM USE) IV PRN (22:32)
[2020-02-03] VITALS (8 sets, daily range): BP systolic 157–212; BP diastolic 69–96
[2020-02-03] MEDS: MORPHINE SULFATE 4 MG/ML CPJ (NOT FOR IM USE) IV PRN ×2 (00:12→09:41)
[2020-02-03] MEDS: BLOOD SUGAR DIAGNOSTIC STRIP TEST SCH ×4 (00:27→18:04)
[2020-02-03] MEDS: INSULIN LISPRO 100 UNITS/ML SUBCUT SCH ×4 (00:27→18:18)
[2020-02-03] MEDS: SODIUM CHLORIDE 0.9% 1,000 ML IV SCH ×2 (04:08→12:18)
[2020-02-03 05:46] LABS: CHLORIDE 111 mEq/L (98-107)
[2020-02-03 05:52] LABS: PHOSPHORUS 2.9 mg/dL (2.5-4.9)
[2020-02-03 06:22] LABS: BASOPHILS % 0.5 % (0.0-2.0); EOSINOPHILS % 0.1 % (0.0-5.0); HEMATOCRIT. 30.9 % (42.0-52.0); HEMOGLOBIN. 10.3 g/dL (14.0-18.0); LYMPHOCYTES % 10.8 % (20.0-50.0); MEAN CORPUSCULAR HEMOGLOBIN 27.6 pg (28.0-32.0); MEAN CORPUSCULAR VOLUME 82.5 fL (80.0-94.0); MEAN PLATELET VOLUME 8.4 fl (7.4-10.4); MONOCYTES % 8.2 % (2.0-8.0); NEUTROPHILS % 80.4 % (40.0-76.0); PLATELET 180 x1000/uL (130-400); RED BLOOD CELL COUNT 3.75 mill/uL (4.7-6.1); RED CELL DISTRIBUTION WIDTH 13.6 % (11.6-14.6)
[2020-02-03] MEDS: PANTOPRAZOLE SODIUM 40 MG/VIAL IV SCH (09:41)
[2020-02-03] MEDS ORDERED: METF100P3 MC (10:30)
[2020-02-03] MEDS ORDERED: METF-414 MT (10:30)
[2020-02-03] MEDS: HYDRALAZINE 20 MG in SODIUM CHLORIDE 0.9% 49 ML IV PRN (12:18)
[2020-02-03] MEDS: LORAZEPAM 2MG/ML CPJ IV PRN (13:39)
[2020-02-03] MEDS ORDERED: SODIUM CHLORIDE 0.9% 1,000 ML IV SCH (14:48)
[2020-02-03] MEDS: CLONIDINE 0.1MG TABLET PO PRN ×2 (16:10→23:14)
[2020-02-03] MEDS: METOCLOPRAMIDE HCL 10MG TABLET PO SCH (18:01)
[2020-02-03] MEDS ORDERED: MORPHINE SULFATE 4 MG/ML CPJ (NOT FOR IM USE) IV PRN (19:30)
[2020-02-03] MEDS: FAMOTIDINE 20MG/2ML VIAL IV SCH (20:25)
[2020-02-04] VITALS: BP 181/93
[2020-02-04] MEDS: BLOOD SUGAR DIAGNOSTIC STRIP TEST SCH ×3 (00:44→12:27)
[2020-02-04] MEDS ORDERED: LOSARTAN POTASSIUM 50 MG TABLET PO NR (00:45)
[2020-02-04] MEDS ORDERED: NIFEDIPINE XL 60MG TAB PO NR (00:45)
[2020-02-04] MEDS ORDERED: SODIUM CHLORIDE 0.9% 1,000 ML IV SCH (00:45)
[2020-02-04] MEDS: METOCLOPRAMIDE HCL 10MG TABLET PO SCH ×2 (01:20→09:35)
[2020-02-04 04:00] VITALS: BP 172/89
[2020-02-04] MEDS: HYDRALAZINE 20 MG in SODIUM CHLORIDE 0.9% 49 ML IV PRN (05:12)
[2020-02-04] MEDS: INSULIN LISPRO 100 UNITS/ML SUBCUT SCH ×3 (06:00→12:56)
[2020-02-04 08:00] VITALS: BP 126/65
[2020-02-04 08:03] LABS: HEMATOCRIT. 31.2 % (42.0-52.0); HEMOGLOBIN. 10.6 g/dL (14.0-18.0); LYMPHOCYTES % 14.4 % (20.0-50.0); MEAN CORPUSCULAR HEMOGLOBIN 28.3 pg (28.0-32.0); MEAN PLATELET VOLUME 8.2 fl (7.4-10.4); PLATELET 184 x1000/uL (130-400); RED BLOOD CELL COUNT 3.76 mill/uL (4.7-6.1); RED CELL DISTRIBUTION WIDTH 13.6 % (11.6-14.6)
[2020-02-04 08:04] LABS: BASOPHILS % 0.6 % (0.0-2.0); EOSINOPHILS % 1.1 % (0.0-5.0); MONOCYTES % 8.9 % (2.0-8.0)
[2020-02-04 08:18] LABS: PHOSPHORUS 2.4 mg/dL (2.5-4.9)
[2020-02-04] MEDS ORDERED: NIFEDIPINE XL 60MG TAB PO SCH (09:00)
[2020-02-04] MEDS ORDERED: LOSARTAN POTASSIUM 50 MG TABLET PO SCH (09:00)
[2020-02-04] MEDS: FAMOTIDINE 20MG/2ML VIAL IV SCH (09:37)
[2020-02-04] MEDS: LORAZEPAM 2MG/ML CPJ IV PRN (10:03)
[2020-02-04] MEDS ORDERED: POTASSIUM PHOS,M-BASIC-D-BASIC 15 MMOL in DEXT 5% WATER 245 ML IV NR (11:00)
[2020-02-04 12:00] VITALS: BP 132/67
[2020-02-04 15:14] VITALS: BP 132/65
[2020-02-04 16:00] VITALS: BP 146/75
[2020-02-05] MEDS ORDERED: FAMOTIDINE 20MG/2ML VIAL IV SCH (09:00)
== END 2020-02-04 16:51 | disposition home or self-care (01) | DRG 249 ==
LOC: ER 08:59 → MICUSO 16:52 → EDBEDREQ 16:53 → 6EST 02-03 08:54
PROVIDERS: ADMIT Internal Medicine; ATTEND Internal Medicine
DX: K52.9 Noninfective gastroenteritis and colitis, unspecified (principal); N17.0 Acute kidney failure with tubular necrosis; K31.84 Gastroparesis; E11.43 Type 2 diabetes mellitus with diabetic autonomic (poly)neuropathy; E78.00 Pure hypercholesterolemia, unspecified; G89.29 Other chronic pain; K57.90 Diverticulosis of intestine, part unspecified, without perforation or abscess without bleeding; E66.9 Obesity, unspecified; F12.90 Cannabis use, unspecified, uncomplicated; M54.5 Low back pain; I10 Essential (primary) hypertension; F41.1 Generalized anxiety disorder; K86.1 Other chronic pancreatitis; Z83.3 Family history of diabetes mellitus; Z68.31 Body mass index [BMI] 31.0-31.9, adult; Z79.899 Other long term (current) drug therapy; Z79.84 Long term (current) use of oral hypoglycemic drugs; Z79.82 Long term (current) use of aspirin; E43 Unspecified severe protein-calorie malnutrition
CPT/HCPCS: 36415; 80048; 80053; 80305; 80320; 81003; 82962; 83036; 83735; 84100; 85025; 96374; 99285; C9113; J0360; J1630; J1815; J2060; J2270; J2405; J2765; J3490; J7030; J7060; J8597; G0480

== ENCOUNTER 2020-03-27 09:47 | Inpatient (IN) | payer MEDICAID ==
[~2020-03-27] VITALS: Ht 170.2 cm; Wt 97.1 kg
[~2020-03-27 09:47] MED LIST changes: +METF-414 MT
[2020-03-27] MEDS ORDERED: SODIUM CHLORIDE 0.9% 1,000 ML IV ONE (10:07)
[2020-03-27] MEDS ORDERED: KETOROLAC 30MG/ML VIAL IV STA (10:07)
[2020-03-27] MEDS ORDERED: FAMOTIDINE 20MG/2ML VIAL IV STA (10:07)
[2020-03-27] MEDS ORDERED: ONDANSETRON 4MG ODT PO STA (10:07)
[2020-03-27] MEDS ORDERED: MORPHINE SULFATE 4 MG/ML CPJ (NOT FOR IM USE) IV ONE (10:30)
[2020-03-27] MEDS ORDERED: HALOPERIDOL LACTATE 5MG/ML VIAL IM ONE (10:30)
[2020-03-27 10:32] LABS: BASOPHILS % 0.9 % (0.0-2.0); EOSINOPHILS % 2.8 % (0.0-5.0); HEMATOCRIT. 37.6 % (42.0-52.0); HEMOGLOBIN. 12.4 g/dL (14.0-18.0); LYMPHOCYTES % 13.2 % (20.0-50.0); MEAN CORPUSCULAR HEMOGLOBIN 27.7 pg (28.0-32.0); MEAN CORPUSCULAR VOLUME 83.8 fL (80.0-94.0); MEAN PLATELET VOLUME 8.5 fl (7.4-10.4); MONOCYTES % 4.1 % (2.0-8.0); PLATELET 232 x1000/uL (130-400); RED BLOOD CELL COUNT 4.49 mill/uL (4.7-6.1); RED CELL DISTRIBUTION WIDTH 13.4 % (11.6-14.6)
[2020-03-27 10:42] LABS: INR 0.9; PROTHROMBIN TIME 9.8 sec (9.6-11.0)
[2020-03-27] MEDS ORDERED: SODIUM CHLORIDE 0.9% 1000ML BAG (SEPSIS BOLUS) IV ONE (11:15)
[2020-03-27 11:48] LABS: CHLORIDE 108 mEq/L (98-107)
[2020-03-27 12:13] LABS: CLARITY URINE CLEAR (CLEAR); COLOR URINE YELLOW (YELLOW); KETONES URINE NEGATIVE (NEGATIVE); LEUKOCYTE ESTERASE URINE NEGATIVE (NEGATIVE); NITRITE URINE NEGATIVE (NEGATIVE); OCCULT BLOOD URINE 1+ (NEGATIVE); PH URINE 7.5 (4.5-8.0); PROTEIN URINE 3+ (NEGATIVE); SPECIFIC GRAVITY URINE 1.012 (1.005-1.030); UROBILINOGEN URINE 0.2 E.U./dL (0.2-1.0)
[2020-03-27 12:18] LABS: ETHANOL BLOOD < 10 mg/dL
[2020-03-27] MEDS ORDERED: DEXTROSE 50% WATER 50ML SYRINGE IV PRN (15:30)
[2020-03-27] MEDS ORDERED: DOCUSATE SODIUM 100MG CAPSULE PO PRN (15:30)
[2020-03-27] MEDS ORDERED: ONDANSETRON HCL 4MG/2ML INJ IV PRN (15:30)
[2020-03-27] MEDS ORDERED: IPRATROPIUM/ALBUTEROL 0.5-3(2.5)MG/3ML NEB HHN PRN (15:30)
[2020-03-27] MEDS ORDERED: MAGNESIUM/ALUMINUM HYDROXIDE/SIMETHICONE 30ML UDC PO PRN (15:30)
[2020-03-27] MEDS: MORPHINE SULFATE 2 MG/ML CPJ (NOT FOR IM USE) IV PRN ×2 (16:00→23:34)
[2020-03-27] MEDS: DEXT 5%/0.45% NACL 1000ML 1,000 ML IV SCH (16:00)
[2020-03-27] MEDS: CLONIDINE 0.1MG TABLET PO PRN ×2 (16:00→23:28)
[2020-03-27] MEDS ORDERED: METOPROLOL TARTRATE 5MG/5ML VIAL IV NR (17:30)
[2020-03-27] MEDS ORDERED: AMLODIPINE 10MG TABLET PO NR (17:30)
[2020-03-27] MEDS: BLOOD SUGAR DIAGNOSTIC STRIP TEST SCH ×2 (17:39→21:00)
[2020-03-27] MEDS: INSULIN LISPRO 100 UNITS/ML SUBCUT SCH ×2 (17:39→23:27)
[2020-03-27] MEDS: ENOXAPARIN 40MG/0.4ML SYR SUBCUT SCH (18:02)
[2020-03-27] MEDS ORDERED: ATORVASTATIN CALCIUM 40MG TABLET PO SCH (21:00)
[2020-03-27] MEDS: ATORVASTATIN CALCIUM 10MG TABLET PO SCH (23:40)
[2020-03-28] VITALS (7 sets, daily range): BP systolic 134–184; BP diastolic 69–93
[2020-03-28 06:27] LABS: CHLORIDE 109 mEq/L (98-107)
[2020-03-28 06:29] LABS: BASOPHILS % 0.3 % (0.0-2.0); EOSINOPHILS % 0.1 % (0.0-5.0); HEMATOCRIT. 30.8 % (42.0-52.0); HEMOGLOBIN. 10.1 g/dL (14.0-18.0); LYMPHOCYTES % 12.7 % (20.0-50.0); MEAN CORPUSCULAR HEMOGLOBIN 27.4 pg (28.0-32.0); MEAN CORPUSCULAR VOLUME 83.3 fL (80.0-94.0); MONOCYTES % 7.7 % (2.0-8.0); NEUTROPHILS % 79.2 % (40.0-76.0); PLATELET 189 x1000/uL (130-400); RED CELL DISTRIBUTION WIDTH 13.4 % (11.6-14.6)
[2020-03-28 06:52] LABS: AMYLASE 72 IU/L (25-115)
[2020-03-28] MEDS: INSULIN LISPRO 100 UNITS/ML SUBCUT SCH ×4 (07:40→20:49)
[2020-03-28] MEDS: BLOOD SUGAR DIAGNOSTIC STRIP TEST SCH ×4 (07:43→20:49)
[2020-03-28 08:50] LABS: METHADONE URINE SCREEN NEGATIVE (NEGATIVE); OPIATES URINE SCREEN PRESUMTIVE POSITIVE (NEGATIVE)
[2020-03-28 08:51] LABS: *AMPHETAMINES SCREEN URINE NEGATIVE (NEGATIVE); *BARBITURATES SCREEN URINE NEGATIVE (NEGATIVE); *BENZODIAZEPINES SCREEN URINE NEGATIVE (NEGATIVE); CANNABINOID URINE SCREEN PRESUMTIVE POSITIVE (NEGATIVE); PHENCYCLIDINE URINE SCREEN NEGATIVE (NEGATIVE)
[2020-03-28 08:52] LABS: *COCAINE SCREEN URINE NEGATIVE (NEGATIVE)
[2020-03-28] MEDS ORDERED: LOSARTAN POTASSIUM 25 MG TABLET PO SCH ×2 (09:00→11:30)
[2020-03-28] MEDS: ASPIRIN 81MG EC TABLET PO SCH (11:19)
[2020-03-28] MEDS: PANTOPRAZOLE SODIUM 40 MG/VIAL IV SCH (11:20)
[2020-03-28] MEDS: AMLODIPINE 10MG TABLET PO SCH (11:20)
[2020-03-28] MEDS: DEXT 5%/0.45% NACL 1000ML 1,000 ML IV SCH (11:30)
[2020-03-28] MEDS: LORAZEPAM 2MG/ML CPJ IV PRN ×3 (14:48→23:23)
[2020-03-28] MEDS: MORPHINE SULFATE 2 MG/ML CPJ (NOT FOR IM USE) IV PRN (16:43)
[2020-03-28] MEDS: CLONIDINE 0.1MG TABLET PO PRN (16:47)
[2020-03-28] MEDS: ENOXAPARIN 40MG/0.4ML SYR SUBCUT SCH (18:44)
[2020-03-28] MEDS: ATORVASTATIN CALCIUM 10MG TABLET PO SCH (20:49)
[2020-03-29] VITALS: BP 135/68
[2020-03-29 04:00] VITALS: BP 129/69
[2020-03-29] MEDS: INSULIN LISPRO 100 UNITS/ML SUBCUT SCH ×3 (06:23→17:40)
[2020-03-29] MEDS: DEXT 5%/0.45% NACL 1000ML 1,000 ML IV SCH ×2 (06:24→17:27)
[2020-03-29] MEDS: BLOOD SUGAR DIAGNOSTIC STRIP TEST SCH ×3 (06:24→17:10)
[2020-03-29 07:51] LABS: BASOPHILS % 0.6 % (0.0-2.0); EOSINOPHILS % 2.1 % (0.0-5.0); HEMATOCRIT. 32.2 % (42.0-52.0); HEMOGLOBIN. 10.7 g/dL (14.0-18.0); LYMPHOCYTES % 22.9 % (20.0-50.0); MEAN CORPUSCULAR HEMOGLOBIN 27.8 pg (28.0-32.0); MEAN CORPUSCULAR VOLUME 83.8 fL (80.0-94.0); MONOCYTES % 9.1 % (2.0-8.0); NEUTROPHILS % 65.3 % (40.0-76.0); PLATELET 190 x1000/uL (130-400); RED BLOOD CELL COUNT 3.84 mill/uL (4.7-6.1); RED CELL DISTRIBUTION WIDTH 13.2 % (11.6-14.6)
[2020-03-29 08:00] VITALS: BP 174/78
[2020-03-29] MEDS ORDERED: LOSARTAN POTASSIUM 25 MG TABLET PO SCH (09:00)
[2020-03-29] MEDS: AMLODIPINE 10MG TABLET PO SCH (09:09)
[2020-03-29] MEDS: ASPIRIN 81MG EC TABLET PO SCH (09:10)
[2020-03-29] MEDS: PANTOPRAZOLE SODIUM 40 MG/VIAL IV SCH (09:10)
[2020-03-29] MEDS: LORAZEPAM 2MG/ML CPJ IV PRN ×2 (09:27→14:46)
[2020-03-29] MEDS ORDERED: GLIP5TAB12 MT (11:08)
[2020-03-29] MEDS ORDERED: HYDR100T26 MT (11:08)
[2020-03-29] MEDS ORDERED: LOSARTAN POTASSIUM 50 MG TABLET PO NR (11:15)
[2020-03-29 12:00] VITALS: BP 144/74
[2020-03-29 16:00] VITALS: BP 146/88
[2020-03-29] MEDS: ENOXAPARIN 40MG/0.4ML SYR SUBCUT SCH (17:00)
[2020-03-29 19:42] VITALS: BP 136/78
[2020-03-30] MEDS ORDERED: LOSARTAN POTASSIUM 100 MG TABLET PO SCH (09:00)
== END 2020-03-29 19:55 | disposition home or self-care (01) | DRG 249 ==
LOC: ER 09:57 → 8WST 15:06 → EDBEDREQ 15:09 → ENRESERV 20:44
PROVIDERS: ADMIT Internal Medicine; ATTEND Internal Medicine
DX: K52.9 Noninfective gastroenteritis and colitis, unspecified (principal); I16.0 Hypertensive urgency; I10 Essential (primary) hypertension; F12.90 Cannabis use, unspecified, uncomplicated; E78.5 Hyperlipidemia, unspecified; E78.00 Pure hypercholesterolemia, unspecified; E11.65 Type 2 diabetes mellitus with hyperglycemia; D72.829 Elevated white blood cell count, unspecified; D64.9 Anemia, unspecified; E87.2 Acidosis; K44.9 Diaphragmatic hernia without obstruction or gangrene; K57.90 Diverticulosis of intestine, part unspecified, without perforation or abscess without bleeding; N17.9 Acute kidney failure, unspecified; E66.9 Obesity, unspecified; Z68.33 Body mass index [BMI] 33.0-33.9, adult; Z79.82 Long term (current) use of aspirin; Z79.84 Long term (current) use of oral hypoglycemic drugs; Z79.899 Other long term (current) drug therapy
CPT/HCPCS: 36415; 71045; 74176; 80048; 80053; 80076; 80305; 80320; 81003; 82150; 82962; 83036; 83605; 83735; 84100; 84484; 85025; 93005; 93306; 93970; 96374; 99285; C9113; J1630; J1650; J1815; J1885; J2060; J2270; J2405; J3490; J7030; Q0162; G0480

== ENCOUNTER 2023-01-24 10:08 | Emergency (ER) | payer MEDICAID ==
[~2023-01-24] VITALS: Ht 170.2 cm; Wt 90.0 kg
[~2023-01-24 10:08] MED LIST changes: +CLOP-31 PO; +GABA-529 PO; +GLIP5TAB12 MT; +HYDR100T26 MT; -LOSA25TA3 PO; -METF-414 MT; -METF-414 PO; +METO-385 PO; +TOPUD PO
[2023-01-24 10:12] VITALS: O2SAT 99
[2023-01-24 10:45] VITALS: BP 160/88; PULSE 87; RESP 18; TEMP 98.3
== END 2023-01-24 10:48 | disposition home or self-care (01) ==
LOC: ER 10:08
DX: Z48.00 Encounter for change or removal of nonsurgical wound dressing (principal)
CPT/HCPCS: 99281; Z7610 ×3

== ENCOUNTER 2023-10-04 09:56 | Emergency (ER) | payer MEDICAID ==
[~2023-10-04] VITALS: Ht 167.6 cm; Wt 70.0 kg
[~2023-10-04 09:56] MED LIST changes: +CALC667C PO; -GLIP5TAB12 MT; +GLIP5TAB22 MT; +NEPVIT PO
[2023-10-04 10:04] VITALS: O2SAT 100
[2023-10-04] MEDS: LORAZEPAM 2MG/ML INJ IV ONE ×2 (11:20→12:00)
[2023-10-04] MEDS: PHENOBARBITAL SODIUM 65MG/ML 1ML IM ONE (11:33)
[2023-10-04 12:00] LABS: BASOPHILS % 0.7 % (0.0-2.0); EOSINOPHILS % 0.2 % (0.0-5.0); HEMATOCRIT. 32.6 % (42.0-52.0); HEMOGLOBIN. 10.7 g/dL (14.0-18.0); LYMPHOCYTES % 8.3 % (20.0-50.0); MEAN CORPUSCULAR HEMOGLOBIN 28.2 pg (28.0-32.0); MEAN CORPUSCULAR HGB CONC 32.9 g/dL (31.0-37.0); MEAN CORPUSCULAR VOLUME 85.7 fL (80.0-94.0); NEUTROPHILS % 83.8 % (40.0-76.0); PLATELET 200 x1000/uL (130-400); WHITE BLOOD COUNT 9.3 x1000/uL (4.5-11.0)
[2023-10-04 12:40] LABS: ALANINE AMINOTRANSFERASE 14 IU/L (10-49); ALBUMIN 4.3 g/dL (3.2-4.8); ASPARTATE AMINOTRANSFERASE 20 IU/L (<34); BILIRUBIN TOTAL 0.6 mg/dL (0.1-1.0); CALCIUM 9.7 mg/dL (8.7-10.4); CARBON DIOXIDE 21 mEq/L (21-32); CHLORIDE 103 mEq/L (98-107); GLUCOSE 199 mg/dL (70-105); POTASSIUM 3.8 mEq/L (3.5-5.1); SODIUM 139 mEq/L (136-145); TROPONIN I HIGH SENSITIVITY 10 ng/L (3.0-53); UREA NITROGEN BLOOD 36 mg/dL (9-23)
[2023-10-04] MEDS: HALOPERIDOL LACTATE 5MG/ML VIAL IM ONE (13:02)
[2023-10-04 13:20] LABS: CREATININE 6.2 mg/dL (0.6-1.3)
[2023-10-04 14:24] LABS: TROPONIN I HIGH SENSITIVITY 10 ng/L (3.0-53)
[2023-10-04 14:45] LABS: INR 0.9; PROTHROMBIN TIME 10.6 sec (9.6-11.0)
[2023-10-04 17:17] LABS: CLARITY URINE CLEAR (CLEAR); COLOR URINE YELLOW (YELLOW); GLUCOSE URINE 2+ (NEGATIVE); KETONES URINE TRACE (NEGATIVE); LEUKOCYTE ESTERASE URINE NEGATIVE (NEGATIVE); NITRITE URINE NEGATIVE (NEGATIVE); OCCULT BLOOD URINE 2+ (NEGATIVE); PROTEIN URINE 3+ (NEGATIVE); SPECIFIC GRAVITY URINE 1.018 (1.005-1.030); UROBILINOGEN URINE 0.2 E.U./dL (0.2-1.0)
[2023-10-04 17:52] LABS: BACTERIA URINE TRACE; SQUAMOUS EPITHELIAL CELL URINE FEW /lpf (RARE/1+); WBC URINE 0-2 /hpf (0-2)
[2023-10-04 18:05] VITALS: BP 158/87; PULSE 96; RESP 15; TEMP 98.5
== END 2023-10-04 18:06 | disposition home or self-care (01) ==
LOC: ER 10:07
DX: R10.13 Epigastric pain (principal); F12.10 Cannabis abuse, uncomplicated; I10 Essential (primary) hypertension; E11.9 Type 2 diabetes mellitus without complications; Z79.82 Long term (current) use of aspirin; Z79.899 Other long term (current) drug therapy; Z98.890 Other specified postprocedural states
CPT/HCPCS: 80053; 81003; 83690; 85025; 85610; 84484; 36415; 74176; 93005; 96372; 96374; 99285; J1630; J2060; J2560; Z7610 ×4; C1893

== ENCOUNTER 2024-04-02 22:50 | Emergency (ER) | payer MEDICAID ==
[~2024-04-02] VITALS: Ht 170.2 cm; Wt 78.0 kg
[~2024-04-02 22:50] MED LIST changes: -AMLO10TA4 PO; +AMLO10TA80 PO; +ASPI-1406 PO; -ASPI-1497 PO; +ATOR10TA PO; +FOLI0.8T53 PO; +HYDR100T11 PO; -HYDR100T26 MT; -LIP40 PO; +METF-414 PO; -METO-385 PO; +METO25TA6 PO; -NEPVIT PO; +OMEP20CA14 MT; +SUCR1TAB30 PO; -TOPUD PO
[2024-04-02 22:52] VITALS: BP 118/88; PULSE 80; RESP 18; TEMP 98.2; O2SAT 98
[2024-04-03 00:28] LABS: BASOPHILS % 0.7 % (0.0-2.0); EOSINOPHILS % 2.9 % (0.0-5.0); HEMATOCRIT. 22.6 % (42.0-52.0); HEMOGLOBIN. 7.4 g/dL (14.0-18.0); LYMPHOCYTES % 19.2 % (20.0-50.0); MEAN CORPUSCULAR HEMOGLOBIN 28.8 pg (28.0-32.0); MEAN CORPUSCULAR HGB CONC 32.7 g/dL (31.0-37.0); MEAN PLATELET VOLUME 7.3 fl (7.4-10.4); NEUTROPHILS % 66.2 % (40.0-76.0); PLATELET 214 x1000/uL (130-400); RED BLOOD CELL COUNT 2.57 mill/uL (4.7-6.1); RED CELL DISTRIBUTION WIDTH 15.7 % (11.6-14.6); WHITE BLOOD COUNT 6.4 x1000/uL (4.5-11.0)
[2024-04-03 00:34] LABS: CHLORIDE 98 mEq/L (98-107); POTASSIUM 3.2 mEq/L (3.5-5.1); SODIUM 133 mEq/L (136-145)
[2024-04-03 00:35] LABS: CALCIUM 8.7 mg/dL (8.7-10.4); CARBON DIOXIDE 30 mEq/L (21-32)
[2024-04-03 00:40] LABS: GLUCOSE 245 mg/dL (70-105); UREA NITROGEN BLOOD 24 mg/dL (9-23)
[2024-04-03 00:42] LABS: ALANINE AMINOTRANSFERASE < 7 IU/L (10-49); ALBUMIN 3.8 g/dL (3.2-4.8); ASPARTATE AMINOTRANSFERASE 17 IU/L (<34); BILIRUBIN TOTAL 0.5 mg/dL (0.1-1.0)
[2024-04-03 00:58] LABS: CREATININE 5.6 mg/dL (0.6-1.3)
== END 2024-04-03 01:23 | disposition home or self-care (01) ==
LOC: ER 22:50
DX: R53.1 Weakness (principal); M79.602 Pain in left arm; R42 Dizziness and giddiness; I12.0 Hypertensive chronic kidney disease with stage 5 chronic kidney disease or end stage renal disease; E11.22 Type 2 diabetes mellitus with diabetic chronic kidney disease; N18.6 End stage renal disease; Z99.2 Dependence on renal dialysis; Z98.890 Other specified postprocedural states; Z79.899 Other long term (current) drug therapy
CPT/HCPCS: 36415; 71045; 80053; 85025; 93005; 99285

== ENCOUNTER 2025-02-11 17:31 | Emergency (ER) | payer MEDICAID ==
[~2025-02-11] VITALS: Ht 177.8 cm; Wt 80.0 kg
[~2025-02-11 17:31] MED LIST changes: -AMLO10TA80 PO; -ATOR10TA PO; +ATOR20TA PO; +HYDR-3735 PO; -HYDR100T11 PO; +HYDR25TA78 PO; +MELA3TAB40 PO; -METF-414 PO; -METO10TA3 PO; +NIFE-32 PO; -OMEP20CA14 MT; +ONDA4TAB50 MT; +PANT40TA51 MT; +QUET25TA PO; +SERT25TA74 PO; +SUCR1TAB PO; -SUCR1TAB30 PO; +TOPUD PO
[2025-02-11 17:33] VITALS: O2SAT 100
[2025-02-11] MEDS: ONDANSETRON 4MG ODT PO ONE ×2 (18:00→18:25)
[2025-02-11 18:15] LABS: BASOPHILS % 0.8 % (0.0-2.0); EOSINOPHILS % 2.9 % (0.0-5.0); HEMATOCRIT. 33.5 % (42.0-52.0); HEMOGLOBIN. 11.2 g/dL (14.0-18.0); LYMPHOCYTES % 21.2 % (20.0-50.0); MEAN PLATELET VOLUME 7.9 fl (7.4-10.4); MONOCYTES % 10.0 % (2.0-8.0); NEUTROPHILS % 65.1 % (40.0-76.0); PLATELET 188 x1000/uL (130-400); RED BLOOD CELL COUNT 3.89 mill/uL (4.7-6.1); RED CELL DISTRIBUTION WIDTH 16.0 % (11.6-14.6)
[2025-02-11] MEDS: MAGNESIUM/ALUMINUM HYDROXIDE/SIMETHICONE 30ML UDC PO ONE (18:25)
[2025-02-11] MEDS: FAMOTIDINE 20MG TABLET PO ONE (18:25)
[2025-02-11 18:35] LABS: UREA NITROGEN BLOOD 30 mg/dL (9-23)
[2025-02-11 18:36] LABS: ETHANOL BLOOD < 10 mg/dL (<10)
[2025-02-11 18:37] LABS: ASPARTATE AMINOTRANSFERASE 15 IU/L (<34); TROPONIN I HIGH SENSITIVITY 13 ng/L (3.0-53)
[2025-02-11 18:38] LABS: BILIRUBIN DIRECT 0.2 mg/dL (<=3.0); BILIRUBIN TOTAL 0.6 mg/dL (0.1-1.0); PROTEIN TOTAL 6.4 g/dL (6.0-8.3)
[2025-02-11 18:56] LABS: CREATININE 5.6 mg/dL (0.6-1.3)
[2025-02-11] MEDS: DICYCLOMINE HCL 10MG/ML 2ML VIAL IM ONE (19:30)
[2025-02-11] MEDS ORDERED: MAG355OR21 MT (20:47)
[2025-02-11] MEDS ORDERED: FAMO-135 MT (20:47)
[2025-02-11 21:05] VITALS: BP 149/78; PULSE 90; RESP 14; TEMP 37.1; O2SAT 99
== END 2025-02-11 21:35 | disposition home or self-care (01) ==
LOC: ER 17:31
DX: K29.00 Acute gastritis without bleeding (principal); I12.0 Hypertensive chronic kidney disease with stage 5 chronic kidney disease or end stage renal disease; E11.22 Type 2 diabetes mellitus with diabetic chronic kidney disease; N18.6 End stage renal disease; Z79.899 Other long term (current) drug therapy; Z79.82 Long term (current) use of aspirin
CPT/HCPCS: 80076; 80048; 80320; 83690; 85025; 84484; 36415; 99284; Q0162; J0500; Z7610 ×2; 99285; G0480